=== PATIENT | female | born 1995 | race Caucasian/White ===

== ENCOUNTER 2020-07-16 13:08 | Emergency (ER) | payer OTHER, SELFPAY ==
[2020-07-16 13:20] VITALS: BP 134/88; PULSE 99; RESP 20; TEMP 37.8; O2SAT 100
--- NOTE | 2020-07-16 13:24 | ED.ABDPAIN ---
HPI - Abdominal Pain General Chief Complaint: Abdominal Pain Stated Complaint: lower abdominal pain/bloating/chills Time Seen by Provider: 07/16/20 13:55 Source: patient and RN notes reviewed Mode of arrival: ambulatory Limitations: no limitations History of Present Illness HPI narrative: 24-year-old female presents with concern for abdominal pain, bloating, low-grade temperature, chills. Reports symptoms started Thursday night, reports she had 2 episodes of vomiting on Thursday night. Reports she has an IUD, does not have a menstrual period. Reports she last felt her IUD strings approximately 2 weeks ago. Reports she had a soft bowel movement yesterday and had rectal pain with a bowel movement. Reports generalized abdominal pain, reports bilateral shoulder pain MD elicited complaint: abdominal pain Review of Systems Review of Systems: Narrative: CONSTITUTIONAL: Denies malaise, sweats. Reports chills and fever. EYES: Denies visual changes, redness, or discharge. ENT: Denies rhinorrhea, congestion, sinus pain, otalgia or sore throat. CARDIOVASCULAR: Denies chest pain, palpitations, or edema. RESPIRATORY: Denies cough or dyspnea. GASTROINTESTINAL: Reports generalized abdominal pain, nausea, vomiting, rectal pain with bowel movement. Denies diarrhea, bloody, or mucous stools. GENITOURINARY: Denies frequency, urgency, dysuria or hematuria. SKIN: Denies rash or itching. MUSCULOSKELETAL: Reports bilateral anterior shoulder pain. Denies back pain, joint pain, or myalgia. All systems reviewed & are unremarkable except as noted in HPI and below PMFSH Comments At time of signature, agree with nursing past medical, surgical, social and family history. There is no relevant family history pertinent to the presenting complaint Exam Narrative: Exam Narrative: GENERAL: Well-appearing, well-nourished, and in no acute distress. HEAD: Normocephalic, atraumatic. EYES: PERRLA, conjunctivae clear, and EOMI. ENT: Nares clear, turbinates pink, no rhinorrhea or epistaxis. Mucous membranes moist. Oropharynx without edema, erythema, or lesions. Tonsils not enlarged and without exudate. NECK: Supple. No lymphadenopathy CHEST: Speaks in full sentences. No respiratory distress. HEART: Regular rate and rhythm. ABDOMEN: Soft, mildly distended. Moderate left upper quadrant tenderness, moderate left lower quadrant tenderness, mild right lower and upper quadrant tenderness. No guarding, rebound tenderness, or rigid. No pulsatilla masses. Bowel sounds present in all four quadrants. No organomegaly. Negative Vilchis?s sign. No periumbilical tenderness. No Supra public tenderness or distension. No hernia noted. No scars or surface trauma. SKIN: Warm, dry, no rash. NEURO: Alert and oriented x3. PSYCH: Normal mood and affect Course Course Emergency Course: Patient is aware , understands and agrees to be seen in the emergency department. Patient agrees to follow-up as directed and is aware of reasons to seek care at the emergency department. Portions of this record may have been created with voice recognition software Vital Signs Vital signs: Vital Signs Temperature 100.0 F H 07/16/20 13:20 Pulse Rate 99 07/16/20 13:20 Respiratory Rate 20 07/16/20 13:20 Blood Pressure 134/88 07/16/20 13:20 Pulse Oximetry 100 07/16/20 13:20 Temperature 100.0 F H 07/16/20 13:20 Pulse Rate 99 07/16/20 13:20 Respiratory Rate 20 07/16/20 13:20 Blood Pressure 134/88 07/16/20 13:20 Pulse Oximetry 100 07/16/20 13:20 Reviewed. Transfer Transfered to: [facility] Transportation: Other (Private vehicle) Transfer rationale: Abdominal pain, low-grade temperature Transfer comments: Patient stable for transfer via private vehicle. Dr. Melissa ahn MD MDM - Abdominal Pain MDM Narrative Medical decision making narrative: Patient's history and exam warrant further evaluation emergency department. Patient agrees to proceed directly to em
== END 2020-07-16 14:15 | disposition short-term general hospital (02) ==
PROVIDERS: Emergency Provider Nurse Practitioner
DX: R10.84 Generalized abdominal pain (principal); R50.9 Fever, unspecified
CPT/HCPCS: 81003; 81025; 99203; G0463

== ENCOUNTER 2022-01-22 09:08 | Outpatient (CLI) | payer OTHER, SELFPAY ==
--- NOTE | ~2022-01-22 | XR_ITS ---
EXAMINATION: XR shoulder LT min 2V EXAM DATE: 01/22/2022 13:49 INDICATION: Ant Lt Shoulder Jt Pain X 6 Months, No Inj. TECHNIQUE: The following left shoulder projections obtained: frontal projection with internal rotatio n, frontal projection with external rotation, Grashey, and scapular Y view (4+ views). There is no p rior study for comparison. FINDINGS: No evidence of left shoulder rotator cuff calcific tendinosis. Unremarkable left glenoh umeral and acromioclavicular joints. There are no acute fractures or dislocations identified. There is no subcutaneous gas. The soft tissue is unremarkable. There are no radiopaque foreign bodies. IMPRESSION: Unremarkable XR shoulder LT min 2V exam. Reviewed, dictated and finalized at location G.
[2022-01-22 18:18] LABS: Hematocrit 41.2 % (37.0-47.0); Hemoglobin 13.6 g/dL (12.0-15.0); Mean Corpuscular Hemoglobin 28.2 pg (26-34); Mean Corpuscular Volume 85.5 fl (80-100); Mean Platelet Volume 11.3 fl (7.4-10.4); Platelet Count Result 234 k/mm3 (150-375); Red Blood Count 4.82 M/mm3 (4.2-5.4); Red Cell Distribution Width 12.6 % (11.5-14.5); White Blood Count 5.2 K/mm3 (4.5-10.0)
[2022-01-22 18:39] LABS: Alanine Aminotransferase 16 U/L (4-35); Albumin Level 4.8 g/dL (3.5-5.1); Alkaline Phosphatase 73 U/L (38-126); Anion Gap 9 mmol/L (8-16); Aspartate Amino Transferase 28 U/L (14-36); Bilirubin,Total 0.4 mg/dL (0.2-1.3); Blood Urea Nitrogen 15 mg/dL (7-17); CRP 0.5 mg/dL (<1.0); Calcium 9.3 mg/dL (8.4-10.2); Carbon Dioxide 24 mmol/L (22-30); Chloride 107 mmol/L (98-107); Cholesterol 197 mg/dL (0-200); Estimated Glomerular Filt Rate > 60; Glucose 91 mg/dL (65-110); HDL Direct 60 mg/dL; Potassium 4.2 mmol/L (3.4-5.0); Sodium 140 mmol/L (137-145); Triglycerides 74 mg/dL (<150)
[2022-01-22 18:48] LABS: LDL Cholesterol Direct 106 mg/dL
[2022-01-22 19:02] LABS: Erythrocyte Sedimentation Rate 6 mm/hr (0-20)
[2022-01-22 19:38] LABS: Vitamin D 25 Hydroxy 28.4 ng/mL
[2022-01-22 19:51] LABS: Thyroid Stimulating Hormone Reflex 0.634 uIU/mL (0.465-4.68)
[2022-01-22 20:00] LABS: Hemoglobin A1C 5.1 % (<5.7)
== END 2022-01-22 09:09 | disposition home or self-care (01) ==
LOC: ANHBWCLAB 09:10
PROVIDERS: PCP Family Medicine; Visit Provider Family Medicine
DX: R51.9 Headache, unspecified (principal); M25.512 Pain in left shoulder; R73.09 Other abnormal glucose; Z00.00 Encounter for general adult medical examination without abnormal findings
CPT/HCPCS: 36415; 73030; 80053; 80061; 82306; 83036; 84443; 85027; 85652; 86140

== ENCOUNTER 2022-09-21 09:14 | Emergency (ER) | payer OTHER, SELFPAY ==
[2022-09-21 09:26] VITALS: BP 109/66; PULSE 78; RESP 14; TEMP 36.7; O2SAT 100
--- NOTE | 2022-09-21 10:53 | ED.EYEPROB ---
HPI - Eye Problem General Chief complaint: Eye Problems Stated complaint: Eye Problem Time Seen by Provider: 09/21/22 10:40 Source: patient, RN notes reviewed and old records reviewed Mode of arrival: ambulatory Limitations: no limitations History of Present Illness HPI Narrative: 26-year-old female who presents care with complaints of redness and scratchiness to eye Thursday with some swelling to her right eye with reported matting this a.m. She reports that her eye has been watery,denies any possible foreign body to her right eye. Patient denies any acute pain to her right eye or any change in vision, no rash noted around eye with some mild swelling and redness to upper eyelid noted. MD chief complaint: eye redness and other Onset (ago): day(s) (2) Eye Symptoms: redness, discharge and other (swelling of upper eyelid) Treatments Prior to Arrival: other (warm compress) Related Data Allergies Allergy/AdvReac Type Severity Reaction Status Date / Time No Known Allergies Allergy Verified 09/21/22 10:11 Review of Systems Review of Systems: CONSTITUTIONAL: Denies fever, chills, or sweats. EYES: Denies visual changes. Reports redness,, irritation, discharge to right eye ENT: Denies rhinorrhea, congestion, sore throat, or otalgia. CARDIOVASCULAR: Denies chest pain, palpitations, or edema. RESPIRATORY: Denies cough or dyspnea. SKIN: Denies rash or itching. NEUROLOGIC: Denies headache All systems reviewed & are unremarkable except as noted in HPI and below PMFSH Past Medical History Medical History IBS (irritable bowel syndrome) Surgical History Surgical History H/O knee surgery Hx of LASIK Family History Family History Mother Hypertension Hyperlipidemia RA (rheumatoid arthritis) Father Diabetes mellitus Social History Social History Smoking status: Never smoker Alcohol intake: current Drinks per week: 1 Substance use: never Comments At time of signature, agree with nursing past medical, surgical, social and family history. There is no relevant family history pertinent to the presenting complaint Exam Narrative: GENERAL: Well-appearing, well-nourished, and in no acute distress. HEAD: Normocephalic, atraumatic. EYES: PERRLA and EOMI. lower eyelids unremarkable., some swelling to right upper eyelid with mild redness,No periorbital cellulitis noted. Sclera and conjunctivae injected right eye, matting and watery. ENT: Nares clear, no rhinorrhea or epistaxis. Mucous membranes moist. NECK: Supple.no lymphadenopathy CHEST: Clear to auscultation. No respiratory distress.SAO2 100% on room air HEART: Regular rate and rhythm. No murmur heard. Normal peripheral pulses. SKIN: Warm, dry, no rash. NEURO: No focal deficits. Alert and oriented x3. Course Course Emergency Course: Patient is aware of diagnosis, understands and agrees to treatment plan. Anticipatory guidance given. Patient agrees to follow-up as directed and is aware of reasons to seek care at the emergency department. Portions of this record may have been created with voice recognition software Level of Care: Express Care Visit Vital Signs Vital signs: Vital Signs Temperature 36.7 C 09/21/22 09:26 Pulse Rate 78 09/21/22 09:26 Respiratory Rate 14 09/21/22 09:26 Blood Pressure 109/66 09/21/22 09:26 Pulse Oximetry 100 09/21/22 09:26 Oxygen Delivery Room Air 09/21/22 09:26 Temperature 36.7 C 09/21/22 09:26 Pulse Rate 78 09/21/22 09:26 Respiratory Rate 14 09/21/22 09:26 Blood Pressure 109/66 09/21/22 09:26 Pulse Oximetry 100 09/21/22 09:26 Oxygen Delivery Room Air 09/21/22 09:26 Reviewed MDM - Eye Problem MDM Narrative Medical decision making narrative: Consideration of the followi
== END 2022-09-21 11:08 | disposition home or self-care (01) ==
PROVIDERS: Emergency Provider Registered Nurse; PCP Family Medicine
DX: H10.31 Unspecified acute conjunctivitis, right eye (principal)
CPT/HCPCS: 99213; G0463

== ENCOUNTER 2023-01-30 07:54 | Outpatient (CLI) | payer OTHER, SELFPAY ==
--- NOTE | ~2023-01-30 | XR_ITS ---
XR abdomen obstructive series DATE: 01/30/2023 09:21 INDICATION: Irritable bowel syndrome TECHNIQUE: Supine and upright AP views COMPARISON: None FINDINGS: There is a prominent amount of fecal material within the colon but no evidence of bowel obs truction. The psoas shadows are intact. No visceromegaly or significant abnormal calcification is shoshana dent. No evidence of pneumoperitoneum The lung bases appear clear. IMPRESSION: Prominent amount of fecal material within colon; no bowel obstruction or free air Reviewed, dictated and finalized at Location A. Reviewed, dictated and finalized at location B. IMPRESSION: Prominent amount of fecal material within colon; no bowel obstructi on or free air
[2023-01-30 18:42] LABS: Hematocrit 39.8 % (37.0-47.0); Hemoglobin 12.9 g/dL (12.0-15.0); Mean Corpuscular HGB Conc 32.4 g/dl (32-36); Mean Corpuscular Hemoglobin 28.9 pg (26-34); Mean Corpuscular Volume 89.2 fl (80-100); Mean Platelet Volume 10.7 fl (7.4-10.4); Platelet Count Result 235 k/mm3 (150-375); Red Blood Count 4.46 M/mm3 (4.2-5.4); Red Cell Distribution Width 12.9 % (11.5-14.5)
[2023-01-30 19:15] LABS: Iron 109 ug/dL (37-170)
[2023-01-30 19:24] LABS: Percent Iron Saturation 33 % (20-50)
[2023-01-30 19:37] LABS: Alanine Aminotransferase 19 U/L (6-35); Albumin Level 4.7 g/dL (3.5-5.1); Alkaline Phosphatase 54 U/L (38-126); Anion Gap 11 mmol/L (8-16); Aspartate Amino Transferase 23 U/L (14-36); Bilirubin,Total 0.6 mg/dL (0.2-1.3); Blood Urea Nitrogen 16 mg/dL (7-17); Calcium 9.2 mg/dL (8.4-10.2); Carbon Dioxide 23 mmol/L (22-30); Chloride 107 mmol/L (98-107); Cholesterol 185 mg/dL (0-200); Estimated Glomerular Filt Rate > 60; Glucose 87 mg/dL (65-110); HDL Direct 53 mg/dL; Potassium 4.2 mmol/L (3.4-5.0); Sodium 141 mmol/L (137-145); Triglycerides 114 mg/dL (<150)
[2023-01-30 19:48] LABS: LDL Cholesterol Direct 97 mg/dL
[2023-01-30 20:07] LABS: Thyroid Stimulating Hormone 0.919 uIU/mL (0.465-4.680)
[2023-01-30 20:28] LABS: Vitamin D 25 Hydroxy 33.4 ng/mL
== END 2023-01-30 07:55 | disposition home or self-care (01) ==
LOC: ANHBWCLAB 07:56
PROVIDERS: PCP Family Medicine; Visit Provider Family Medicine
DX: Z00.00 Encounter for general adult medical examination without abnormal findings (principal); N83.209 Unspecified ovarian cyst, unspecified side; N93.8 Other specified abnormal uterine and vaginal bleeding; K58.9 Irritable bowel syndrome, unspecified; R51.9 Headache, unspecified; Z97.5 Presence of (intrauterine) contraceptive device; R53.83 Other fatigue
CPT/HCPCS: 36415; 74019; 80053; 80061; 82306; 82728; 83540; 83550; 84443; 85027

== ENCOUNTER 2024-02-10 09:19 | Outpatient (CLI) | payer OTHER, SELFPAY ==
[2024-02-10 18:26] LABS: Hematocrit 39.3 % (37.0-47.0); Hemoglobin 12.8 g/dL (12.0-15.0); Mean Corpuscular HGB Conc 32.6 g/dl (32-36); Mean Corpuscular Hemoglobin 28.4 pg (26-34); Mean Corpuscular Volume 87.3 fl (80-100); Mean Platelet Volume 11.3 fl (7.4-10.4); Platelet Count Result 246 k/mm3 (150-375); Red Cell Distribution Width 12.6 % (11.5-14.5); White Blood Count 5.1 K/mm3 (4.5-10.0)
[2024-02-10 20:26] LABS: Alanine Aminotransferase 18 U/L (6-35); Alkaline Phosphatase 48 U/L (38-126); Anion Gap 8 mmol/L (4-12); Aspartate Amino Transferase 58 U/L (14-36); Bilirubin,Total 0.6 mg/dL (0.2-1.3); Blood Urea Nitrogen 21 mg/dL (7-17); Calcium 10.1 mg/dL (8.4-10.2); Carbon Dioxide 26 mmol/L (22-30); Chloride 106 mmol/L (98-107); Cholesterol 191 mg/dL (0-200); Estimated Glomerular Filt Rate > 60; Glucose 86 mg/dL (65-110); HDL Direct 55 mg/dL; Sodium 140 mmol/L (137-145); Triglycerides 62 mg/dL (<150)
[2024-02-10 20:38] LABS: LDL Cholesterol Direct 106 mg/dL
[2024-02-10 20:58] LABS: Thyroid Stimulating Hormone 0.546 uIU/mL (0.465-4.680)
[2024-02-10 21:35] LABS: Folic Acid 8.8 ng/mL (2.76->20)
== END 2024-02-10 09:20 | disposition home or self-care (01) ==
LOC: ANHBWCLAB 09:21
PROVIDERS: PCP Nurse Practitioner Adult Health; Visit Provider Nurse Practitioner Adult Health
DX: R79.89 Other specified abnormal findings of blood chemistry (principal); R53.83 Other fatigue; Z13.9 Encounter for screening, unspecified
CPT/HCPCS: 36415; 80053; 80061; 82306; 82607; 82746; 84443; 85027

== ENCOUNTER 2025-02-09 09:27 | Outpatient (CLI) | payer OTHER, SELFPAY ==
--- OUTSIDE RECORDS SUMMARY | 2025-02-09 09:48 | XMS_ITS | Clinical Summary ---
Author Organization [facility] Address [address] [place] [address] Care Team Providers Care Stitch Welder Name Role Phone None, Provider MD Primary Care Provider Unavaila ble Allergies No known active allergies Active Problems No known active problems Family History Medical History Relation Comments Diabetes Father Hyperlipidemia Mother Hypertension Mother Relation Status Comments Father Mother Social History Tobacco Use Types Packs/Day Years Used Date Smoking Tobacco: Never Smokeless Tobacco: Never Tobacco Cessation:Counseling Given: No Alcohol Use Standard Drinks/Week Comments Yes 0 (1 standard drink = 0.6 oz pur e alcohol) once monthly PHQ-2 Answer Date Recorded PHQ-2 Score - If the patient scores above 3, please move on to questions 3-9 0 02/07/2022 Comments Unknown Sex and Gender Information Value Date Recorded Sex Assigned at Not on file Legal Sex Female 2:02 PM CDT Gender Identity Not on file Sexual Orientation Not on file Last Filed Vital Signs Vital Sign Reading Time Taken Comments Blood Pressure 110/72 02/07/2022 8:55 AM CDT Pulse - - Temperature - - Respiratory Rate - - Oxygen Saturation - - Inhaled Oxygen Concentration - - Weight 79.8 kg (176 lb) 02/07/2022 8:55 AM CDT Height 162.6 cm (5' 4 ) 02/07/2022 8:55 AM CDT Body Mass Index 30.21 02/07/2022 8:55 AM CDT Plan of Treatment Health Maintenance Due Date Last Done Comments Cervical Cancer Screening Pap Smear (Age 30 to 64) Every 3 Years 1993 Annual Physical 1996 Hepatitis C 2011 Hepatitis B Vaccines (1 of 3 - 19+ 3-dose series) 2012 Cervical Cancer Screening Pap with HPV Testing (Age 30 to 64) Every 5 Years 2023 Cervical Cancer Screening with HPV 2023 COVID-19 Vaccine (2023- season) 2024 07/12/2021, 06/19/2021 DTaP, Tdap and Td Vaccines (5 - Td or Tdap) 04/08/2031 04/08/2021, 02/01/2019, 12/18/2016, Additional history exists HPV Vaccines Completed 01/31/2016, 09/03, 05/30/2010 Meningococcal B Vaccine Aged Out No l onger eligible based on patient's age to complete this topic Meningococcal Vaccine Aged Out No capri yudy eligible based on patient's age to complete this topic Pneumococcal Vaccine: Pediatrics (0 to 5 Years) and At-Risk Patients (6 to 64 Years) Aged Out No longer eligible based on patient's age to complete this topic RSV Immunizations Under 20 Months Aged Out No longer eligible based on patient's age to complete this topic Insurance [employer] Care Teams Stitch Welder Relationship Specialty Start Date End Date None, Provider, PCP - General 02/07/22
--- OUTSIDE RECORDS SUMMARY | 2025-02-09 09:48 | XMS_ITS | Referral Summary ---
Author Organization [facility] Address [address] [place] [address] Care Team Providers Care Shop Teacher Name Role Phone Adelaide Sams DO Unavailable [phone] Taj Steward MD Primary Care Provider [phone] Allergies Active Allergy Reactions Criticality Noted Date Comments Prochlorperazine Mental status changes Medium 2020 Severe anxiety with IIV ADMINISTRATION Medications escitalopram (LEXAPRO) 20 mg tablet TAKE 1 TABLET(20 MG) BY MOUTH DAILY 30 tablet 8 01/10/2025 Active Active Problems Problem Noted Date Diagnosed Date Vitamin D deficiency 08/13/2021 Overview (09/02/2023): Last Assessment & Plan: Recheck level today Discussed weekly supplementation if low given Unilateral hearing loss, left 07/15/2021 Assessment & Plan (07/16/2021 12:48 PM CDT): Obtained Hearing test, left sided Hearing loss due to Conductive Hearing loss, will proceed with CT temporal bones Iron deficiency anemia secon matthew to inadequate dietary iron intake 05/22/2021 Overview (09/02/2023): Last Assessment & Plan: Plan CBC and Ferritin today, Venofer infusions 3rd tri Hyperemesis gravidarum with electrolyte imbalanc e 11/19/2020 Overview (09/02/2023): Hypokalemia, significant weight loss Irritable bowel syndrome 09/20/2015 Overview (02/05/2017): IBS - Irritable bowel syndrome Headache 08/14/2014 Overview (02/05/2017): Headache Immunizations Immunization Administration Dates Next Due HPV, Quadrivalent 01/31/2016,09/25/2015,05/30/20 10 Influenza, Quadrivalent, Spl it, Intramuscular 08/02/2016 Influenza, Quadrivalent, Spl it, Preservative Free, Intramuscular 08/01/2021 Influenza, Unspecified 08/01/2021,08/04/2020,11/2017 MMR 04/23/2019 Tdap 04/08/2021, 9,12/18/2016,06/21 Social History Tobacco Use Types Packs/Day Years Used Date Smoking Tobacco: Never Smokeless Tobacco: Never Tobacco Cessation:Counseling Given: Not Answered Alcohol Use Standard Drinks/Week Comments No 0 (1 standard drink = 0.6 oz pur e alcohol) Comments No Sex and Gender Information Value Date Recorded Sex Assigned at Not on file Legal Sex Female 11:12 AM 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 Gender Identity Not on file Sexual Orientation Not on file Occupation Industry Job Start Date Job End Date Not on file Not on file Not on file Not on file Last Filed Vital Signs Vital Sign Reading Time Taken Comments Blood Pressure 132/72 09/12/2024 9:39 AM 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 Pulse 80 07/15/2021 10:38 AM CDT Temperature 36.6 C (97.8 F) 07/15/2021 10:38 AM CDT Respiratory Rate 16 11/15/2020 4:22 PM 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 Oxygen Saturation 98% 11/15/2020 4:22 PM 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 Inhaled Oxygen Concentration - - Weight 81.7 kg (180 lb 3.2 oz) 09/12/2024 9:39 A M 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 Height 162.6 cm (5' 4 ) 09/12/2024 9:39 AM 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 Body Mass Index 30.93 09/12/2024 9:39 AM 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 Plan of Treatment Not on file Insurance [employer] SIG [id number] [employer]ENS[employer] GENERIC [id number] [place] [address] Advance Directives For more information, please contact: [phone] * Full Code (Latest Code Status on File) Date Activated Date Inactivated Comments 09/17/2018 9:20 PM 09/19/2018 6:43 PM Care Teams Shop Teacher Relationship Specialty Start Date End Date Taj Steward MD [address] [facility] [address] [place] [address] PCP - General Family Practice 05/25/23 Adelaide Sams DO [address] [place] [address] [address] [place] [address] Referring Physician Otolaryngology 11/07/21
--- OUTSIDE RECORDS SUMMARY | 2025-02-09 09:48 | XMS_ITS | Clinical Summary ---
Author Organization [facility] Address [address] [place] [address] Phone Care Team Providers Care Ux Visual Designer Name Role Phone Provider, None Primary Care Provider Unavailabl e Allergies No known active allergies Medications naproxen (NAPROSYN) 500 MG Tablet Take 1 Tab by mouth 2 times daily as needed for Mild or more severe pain. 20 Tab 04/21/2018 Active Social History Tobacco Use Types Packs/Day Years Used Date Smoking Tobacco: Never Smokeless Tobacco: Never Alcohol Use Standard Drinks/Week Comments No 0 (1 standard drink = 0.6 oz pur e alcohol) Comments Unknown Sex and Gender Information Value Date Recorded Sex Assigned at Not on file Legal Sex Female 10:38 AM CDT Gender Identity Not on file Sexual Orientation Not on file Last Filed Vital Signs Vital Sign Reading Time Taken Comments Blood Pressure 112/70 04/21/2018 12:23 PM CDT Pulse 72 04/21/2018 12:23 PM CDT Temperature 37.1 C (98.8 F) 04/21/2018 10:51 AM CDT Respiratory Rate 18 04/21/2018 12:23 PM CDT Oxygen Saturation 99% 04/21/2018 12:23 PM CDT Inhaled Oxygen Concentration - - Weight 70.3 kg (155 lb) 04/21/2018 10:51 AM CDT Height 162.6 cm (5' 4 ) 04/21/2018 10:51 AM CDT Body Mass Index 26.61 04/21/2018 10:51 AM CDT Plan of Treatment Health Maintenance Due Date Last Done Comments Hepatitis C Virus (HCV) Screening 1993 TdaP Immunization 1993 Hepatitis B Immunization (1 of 3 - 19+ 3-dose series) 2012 Influenza Immunization (#1) 2024 08/02/2016 SARS-COV-2 Immunization (2023- season) 2024 07/12/2021, 06/19/2021 Respiratory Syncytial Virus (RSV) Immunization (Adult) (1 - 1-dose 75+ series) 2068 Meningococcal Immunization (ACWY) Aged Out No longer eligible b ased on patient's age to complete this topic Pneumococcal Immunization Combined Aged Out No longer eligible b ased on patient's age to complete this topic Rotavirus Immunization Aged Out No lo nger eligible based on patient's age to complete this topic Insurance [employer] [place] [address] [place] [address] Care Teams Ux Visual Designer Relationship Specialty Start Date End Date Provider, None [place] PCP - General 04/21/18
--- OUTSIDE RECORDS SUMMARY | 2025-02-09 09:48 | XMS_ITS | Encounter Summary ---
Author Organization [facility] Address [address] [place] [address] Care Team Providers Care Guest Relations Executive Name Role Phone Cuong Desai DO Primary Care Provider [phone] Cesar Gu DO Unavailable [phone] Stephanie Hernandes MD Unavailable [phone] Encounter Details Date Type Department Care Team (Late st Contact Info) Description 02/09/2016 Lab Requisition [facility] [address] [place] [address] Unknown, Provider Social History Tobacco Use Types Packs/Day Years Used Date Smoking Tobacco: Never Assessed Sex and Gender Information Value Date Recorded Sex Assigned at Not on file Gender Identity Not on file Sexual Orientation Not on file documented as of this encounter Plan of Treatment Not on file documented as of this encounter Procedures Procedure Name Priority Date/Time Associated Diagnosis Comments VARICELLA ZOSTER ANTIBODY IGG Routine 02/09/2016 8:25 AM CDT HEPATITIS B SURFACE ANTIBODY Routine 02/09/2016 8:25 AM CDT documented in this encounter Results * VARICELLA ZOSTER ANTIBODY IGG (02/09/2016 8:25 AM CDT) Varicella zoster Virus Antibody IgG 1566 Immune >165 index 02/11/2016 2:14 PM CDT [facility] ([facility]) Comment: Negative <135 Equivocal 135 - 165 Positive >165 A positive result generally indicates exposure to the pathogen or administration of specific immunoglobulins, but it is not indication of active infection or stage of disease. Blood specimen (specimen) BLOOD SPECIMEN / Unknown Venipuncture / Unknown 02/09/2016 8:25 AM CDT 02/09/2016 2:37 PM CDT Narrative [facility] ([facility]) - 02/11/2016 2:14 PM CDT Performed at: [address] [place] [id number] Travel Med Surg Rn: Kye Kidd PhD, Phone: [phone] Provider Unknown LAB - CHEMISTRY ORDE MIRYAMRAI [facility] ([facility]) * (ABNORMAL) HEPATITIS B SURFACE ANTIBODY (02/09/2016 8:25 AM CDT) [facility]Bs[facility] REACTIVE(A ) Non Reactive 02/09/2016 8:23 PM CDT [facility] Blood BLOOD SPECIMEN / Unknown Venipuncture / Unknown 02/09/2016 8:25 AM CDT 02/09/2016 2:37 PM CDT Provider Unknown LAB - CHEMISTRY ORDMele PAIGE Performing Organization Address City/[facility]/ZIP Co de Phone Number [facility] [address] [place] [address] documented in this encounter Visit Diagnoses Not on filedocumented in this encounter Care Teams Guest Relations Executive Relationship Specialty Start Date End Date Cuong Desai DO [address] [facility] [address] [place] [address] PCP - General 08/08/20 Cesar Gu DO [address] [place] [address] PCP - Attributed-Exclusive Choice 06/02/17 06/22/17 Stephanie Hernandes MD [address] [address] PCP - Attributed-Exclusive Choice 08/23/17 04/02/19 documented as of this encounter
--- OUTSIDE RECORDS SUMMARY | 2025-02-09 09:48 | XMS_ITS | Clinical Summary ---
Author Organization [facility] [employer] Address [address] [place] [address] Care Team Providers Care Liner Inserter Name Role Phone Cuong Desai DO Primary Care Provider [phone] [facility],non-owned Affiliates and Associated Physician Practices is amultiple site organization consisting of ambulatory clinics and hospital sitesin [place], [place], [place] and [place]. This disclosure is being madepursuant to the Care Everywhere program and may not contain all information available regarding this patient. Last updated 18.[facility] [employer] Allergies Active Allergy Reactions Criticality Noted Date Comments Prochlorperazine Psychiatric Medium 2020 Severe anxiety with IIV ADMINISTRATION Medications * Be aware that medications may not be up to date on this document. Alwaysverify current medications with the patient. Medication Sig Dispensed Refills Start Date End Date Status Multiple Vitamins-Minerals (MULTIPLE VITAMINS/WOMENS PO) Take by mouth once daily Active Probiotic Product (PROBIOTIC DAILY PO) Take by mouth once daily Active vitamin D, ergocalciferol, (DRISDOL) 1.25 MG (33810 UT) capsule Take 1 (one) capsule by mouth every 7 days 12 capsule 08/13/2021 Active MAGNESIUM PO Active pantoprazole EC (PROTONIX) 40 MG tabletIndications:Dy spepsia Take 1 (one) tablet by mouth once daily 30 tablet 09/09/2021 Active Active Problems Patient Care Coordination No te Formatting of this note migh t be different from the original. with history of severe HG. Last was out of work due to HG, required PICC line. 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 Hospitalized at 9 weeks for IVF and antiemetics. To follow with MFM until HG resolved. May send back to midwives if okay per MFM. Problem Noted Date Diagnosed Date Vitamin D deficiency 08/13/2021 Assessment & Plan (08/13/2021 9:47 AM CDT): Recheck level today Discussed weekly supplementation if low given exam 08/12/2021 Assessment & Plan (08/12/2021 1:51 PM CDT): ! Neg PPD/A screen MOC: vasectomy Pap NILM, due after September of this year S/P COVID vaccination S/S PMAD discussed RTO in 1 year for WWE Iron deficiency anemia secon matthew to inadequate dietary iron intake 05/22/2021 Assessment & Plan (08/12/2021 1:50 PM CDT): Plan CBC and Ferritin today, Venofer infusions 3rd tri Hyperemesis gravidarum with electrolyte imbalanc e 11/19/2020 Overview (12/13/2020): Hypokalemia, significant weight loss Irritable bowel syndrome 09/20/2015 Overview (05/07/2021): IBS - Irritable bowel syndrome Assessment & Plan (08/12/2021 1:50 PM CDT): Severe HG in with malabsorption, plan visit with GI to establish care. Resolved Problems Problem Noted Date Diagnosed Date Resolved Date Encounter for planned induction of labor 06/30/2021 08/12/2021 Iron deficiency anemia secon matthew to inadequate dietary iron intake 05/27/2021 Anxiety during 12/13/202009/2021 Overview (05/22/2021): Thought to be related to chronic hyperemesis Ferritin 4 05/22/21 Plan to arrange Venofer at 36 weeks Screening for cervical cancer 06/06/2019 08/12/2021 Overview (06/06/2019): 11/19 normal pap Abnormal glucose in , antepartum 02/07/2019 06/06/2019 Overview (02/07/2019): Needs GTT Hyperemesis gravidarum 10/28/201806/06 Overview (10/28/2018): IV therapy at home every other day Home health seeing pt Has IV in place Nausea and vomiting during 09/10/2018 12/21/2018 Supervision of normal pregna ncy in first trimester 09/10/2018 06/06/2019 Overview (09/10/2018): IOB 09/10/18 Dating L=7w4d US Hyperemesis, sent to [facility] for IV fluids now, has been to ED twice this week. Hypokalemia due to loss of potassium 09/10/2018 06/06/2019 (normal spontaneous vaginal delivery) 07/24/2017 12/21/2018 Supervision of normal 03/19/2017 09/10/2018 Overview (03/19/2017): Dating: LMP 06/02/16 c/w 9 4/7 wk US PNL: A+/I/-/-, HIV NR antibody screen neg Chl/karly neg/neg Urine cx: neg GCT: 104 Genetic screening or testing: SS low risk GBS: negative Irritable bowel syndrome 09/20/201509/2021 Overview (06/06/2019): Overview: IBS - Irritable bowel syndrome Uterine size date discrepanc y , third trimester 08/12/2021 Immunizations Name Administration Dates Next Due FLU VACCINE QUAD IIV4 SPLIT 0.25 ML IM 08/02/2016 Human Papilloma Virus Earnest valent Vaccine 01/31/2016,09/25/2015,05/30/2010 INFLUENZA VACCINE 08/01/2021,08/04/2020,08/02/20 18 INFLUENZA VACCINE, QUADR. (A FLURIA, FLUZONE QUADRIVALENT; 6MO+) (IIV4) 08/02/2016 MMR 04/23/2019 TDAP (7yrs+) 04/08/2021, 9,12/18/2016,2007 Family History Medical History Relation Name Comments Diabetes - Type 2 Father Arthritis - Rheumatoid Mother Hypertension Mother Relation Name Status Comments Father Mother Social History Tobacco Use Types Packs/Day Years Used Date Smoking Tobacco: Never Smokeless Tobacco: Never Tobacco Cessation:Counseling Given: No Alcohol Use Standard Drinks/Week Comments Yes 0 (1 standard drink = 0.6 oz pur e alcohol) occasional PHQ-2 Answer Date Recorded PHQ2 TOTAL SCORE 0 06/06/2021 Sex and Gender Information Value Date Recorded Sex Assigned at Not on file Gender Identity Not on file Sexual Orientation Not on file Last Filed Vital Signs Vital Sign Reading Time Taken Comments Blood Pressure 120/72 09/09/2021 9:25 AM CYBER SYSTEMS ENGINEER Pulse 69 09/09/2021 9:25 AM CYBER SYSTEMS ENGINEER Temperature 36.4 C (97.5 F) 09/09/2021 9:25 AM CYBER SYSTEMS ENGINEER Respiratory Rate 14 09/09/2021 9:25 AM CYBER SYSTEMS ENGINEER Oxygen Saturation 100% 09/09/2021 9:25 AM CYBER SYSTEMS ENGINEER Inhaled Oxygen Concentration - - Weight 78 kg (172 lb) 09/09/2021 9:25 AM CYBER SYSTEMS ENGINEER Height 162.6 cm (5' 4 ) 09/09/2021 9:25 AM CYBER SYSTEMS ENGINEER Body Mass Index 29.52 09/09/2021 9:25 AM CYBER SYSTEMS ENGINEER Plan of Treatment Health Maintenance Due Date Last Done Comments HEPATITIS B VACCINE (1 of 3 - 19+ 3-dose series) 2012 COVID-19 VACCINE ( - season) 2024 06/19/2021 DEPRESSION SCREENING 11/02/2024 INFLUENZA VACCINE (Season Ended) 2025 08/01/2021, 08/04/2020, 08/02/2018, Additional history exists PAP SMEAR 09/02/2025 09/02/2022, 09/10/2018 DTAP/TDAP/TD VACCINES (5 - Td or Tdap) 04/08/2031 04/08/2021, 02/01/2019, 12/18/2016, Additional history exists ZOSTER VACCINE (1 of 2) 2043 HPV VACCINE Completed 01/31/2016, 09/03, 05/30/2010 HEPATITIS C SCREENING Completed 08/11/2016 HIV SCREENING Completed 04/08/2021, 04/2021, 09/30/2018, Additional history exists HIB VACCINE Aged Out No longer eligi ble based on patient's age to complete this topic MENINGOCOCCAL (Group B) VACCINE SHARED DECISION-MAKING Aged Out No longer eligible based on patient's age to complete this topic MENINGOCOCCAL GROUPS A/C/Y/W VACCINE Aged Out No longer eligible based on patient's age to complete this topic PNEUMOCOCCAL VACCINE Aged Out No long er eligible based on patient's age to complete this topic Goals Goal Patient Goal Type Associated Problems Recent Progress Patient-Stated? Author Medication Management General On track( 021 9:27 AM CYBER SYSTEMS ENGINEER) No Arina Iqbal RN Note: Expected end date: ongoing Interventions: Take all medications as prescribed Let your doctor know right away about any changes in your medications Make sure to request a refill of your medication at least one week prior to your last dose Procedures Procedure Name Priority Date/Time Associated Diagnosis Comments PAP IMAGE-GUIDED RFLX HPV Routine 09/02/2022 1:08 PM CDT Well woman exam with routine gynecological exam HIV-1 HIV-2 ANTIBODY + HIV P24 AG PANEL Routine 04/08/2021 Encounter for supervision of other normal in third trimester HEPATITIS C AB W/RFLX TO HCV RNA QN PCR Routine 08/11/2016 3:20 PM CDT from Last 3 Months or Most Recently Relevant to Health Maintenance Results * PAP IMAGE-GUIDED RFLX HPV (09/02/2022 1:08 PM CDT) Case Report Gynecologic Cytology Report Case: [id number] Authorizing Provider: Marsha Forbes MD Collected: 09/02/2022 01:08 PM Ordering Location: [facility] Received: 09/03/2022 02:52 PM [facility] First Screen: Donta Foreman Specimen: THINPREP - IMAGE GUIDED, Cervix/Endocervix 09/05/2022 12:59 PM CDT [facility] LMP 08/2309/05/2022 12:59 PM CDT [facility] Menstrual Status None Applicable 01/2022 12:59 PM CDT [facility] Specimen Adequacy Satisfactory for evaluation, endocervical/trans formation zone component absent. 09/05/2022 12:59 PM CDT [facility] Categorization Negative for intraepithelial lesion or malignancy. 09/05/2022 12:59 PM CDT [facility] Interpretation MAIL HANDLER ASSISTANT Negative for intraepithelial lesion or malignancy. 09/05/2022 12:59 PM CDT [facility] Pap Footnote The Pap Smear is a screening test. False positive and false negative results occur. Negative results do not preclude abnormalities, thus clinical correlation is required. This specimen was evaluated by the ThinPrep Imaging System along with an additional manual rescreening by a wholesale loan processor and/or pathologist. 09/05/2022 12:59 PM CDT [facility] Pathology/Cytolo gy MISCELLANEOUS SAMPLES / Unknown 09/02/2022 1:08 PM CDT 09/03/2022 2:52 PM CDT Marsha Forbes MD LAB - PATHOLOGY/CYTO LOGY ORDERABLES Performing Organization Address City/State/[facility] Co de Phone Number [facility] [address] [phone] * HIV-1 HIV-2 ANTIBODY + HIV P24 AG PANEL (04/08/2021) HIV Screen 4th Generation w Reflex NON-REACT SAUD NON-REACT SAUD [facility] Comment: HIV-1 antigen and HIV-1/HIV-2 antibodies were not detected. There is no laboratory evidence of HIV infection. PLEASE NOTE: This information has been disclosed to you from records whose confidentiality may be protected by state law. If your state requires such protection, then the state law prohibits you from making any further disclosure of the information without the specific written consent of the person to whom it pertains, or as otherwise permitted by law. A general authorization for the release of medical or other information is NOT sufficient for this purpose. For additional information please refer to http://education.Mesitis/faq/KEP819 (This link is being provided for informational/ educational purposes only.) The performance of this assay has not been clinically validated in patients less than 2 years old. Test Performed at: [place] [address] JEREMY NAIDU DO,MPH Blood BLOOD SPECIMEN / Unknown 04/08/2021 04/08/2021 10:52 AM CDT Ly Frank APRN-[facility] LAB - CHEMISTRY OR DERABLES Performing Organization Address City/[facility]/ZIP Co de Phone Number [facility] [address] [place] [address] * HEPATITIS C AB W/RFLX TO HCV RNA QN PCR (08/11/2016 3:20 PM CDT) Hepatitis C Antibody NON-REACTI VE NON-REACT SAUD [facility] ([facility]) Signal/Cutoff 0.01 <1.00 [facility] ([facility]) Comment: Test Performed at: [facility] [place] [address] JEREMY NAIDU DO,MPH 08/11/2016 3:20 PM CDT 08/11/2016 3:21 PM CDT Ly Frank APRN-[facility] LAB - CHEMISTRY OR DERABLES [facility] ([facility]) from Last 3 Months or Most Recently Relevant to Health Maintenance Advance Directives * Full Code (Latest Code Status on File) Date Activated Date Inactivated Comments 06/30/2021 6:09 AM 07/01/2021 7:41 PM * Full Code Date Activated Date Inactivated Comments 12/11/2020 11:52 AM 12/13/2020 4:01 PM * Full Code Date Activated Date Inactivated Comments 11/19/2020 1:34 PM 11/22/2020 2:39 PM * Full Code Date Activated Date Inactivated Comments 04/21/2019 8:07 PM 04/23/2019 2:26 PM * Full Code Date Activated Date Inactivated Comments 03/19/2017 9:00 PM 03/22/2017 2:42 PM Care Teams Liner Inserter Relationship Specialty Start Date End Date Cuong Desai DO [address] [address] PCP - General 08/08/20
--- OUTSIDE RECORDS SUMMARY | 2025-02-09 09:48 | XMS_ITS | Encounter Summary ---
Author Organization [facility] Address [address] [address] Care Team Providers Care Project Manager Name Role Phone ReidCuong yeboah Primary Care Provider [phone] Reason for Visit * Reason Onset Date Comments MEDICATION REFILL 04/15/2021 Encounter Details Date Type Department Care Team (Late st Contact Info) Description 04/15/2021 Refill [facility] Gynecology and Women's [facility] [address] [place] [id number] Ly [facility] [address] [place] [address] [id number] MEDICATION REFILL Social History Tobacco Use Types Packs/Day Years Used Date Smoking Tobacco: Never Smokeless Tobacco: Never Alcohol Use Standard Drinks/Week Comments No 0 (1 standard drink = 0.6 oz pur e alcohol) not during Comments Yes Sex and Gender Information Value Date Recorded Sex Assigned at Not on file Gender Identity Not on file Sexual Orientation Not on file documented as of this encounter Functional Status Functional Status Response Date of Assess ment Is person deaf or have serious hearing difficult y? No 12/11/2020 Is person blind or have serious difficulty seein g? No 12/11/2020 Does person have serious dif ficulty walking/climbing stairs? No 12/11/2020 Does person have difficulty dressing/bathing? No 12/11/2020 Does person have difficulty doing errands alone? No 12/11/2020 Cognitive Status Response Date of Assessm ent Does person have difficulty concentrating/remembering/making decisions? No 12/11/2020 documented as of this encounter Plan of Treatment Not on file documented as of this encounter Visit Diagnoses Not on filedocumented in this encounter Care Teams Project Manager Relationship Specialty Start Date End Date Cuong Desai DO [address] [address] PCP - General 08/08/20 documented as of this encounter
--- OUTSIDE RECORDS SUMMARY | 2025-02-09 09:48 | XMS_ITS | Clinical Summary ---
Author Organization [facility] Address [address] [place] [address] Care Team Providers Care Silverware Assembler Name Role Phone Adelaide Sams DO Unavailable [phone] Taj Steward MD Primary Care Provider [phone] Allergies Active Allergy Reactions Criticality Noted Date [...] Unspecified 08/01/2021,08/04/2020,11/2017 MMR 04/23/2019 Tdap 04/08/2021, 9,12/18/2016,06/21 Surgical History Surgery Date Site/Laterality Comments OTHER SURGICAL HISTORY Torn patellar tendon, meniscus: Knee surgery KNEE ARTHROSCOPY Medical History Medical History Date Comments Hx Other Medical Torn patellar t endon, meniscus; Comments: RED 08/14/2014 - IBS (irritable bowel syndrome) Family History Medical History Relation Name Comments Diabetes Father Diabetes mellit us; Hypertension Mother Hypertension; Other Other No family histo ry of breast cancer; Relation Name Status Comments Father Mother Other Social History Tobacco Use Types Packs/Day Years Used Date Smoking Tobacco: Never Smokeless Tobacco: Never Tobacco Cessation:Counseling Given: Not Answered Alcohol Use Standard Drinks/Week Comments No 0 (1 standard drink = 0.6 oz pur e alcohol) Comments No Sex and Gender Information Value Date Recorded Sex Assigned at Not on file Legal Sex Female 11:12 AM BURLAPPER Gender Identity Not on file Sexual Orientation Not on file Occupation Industry Job Start Date Job End Date Not on file Not on file Not on file Not on file Obstetrics History Para Term AB IAB SAB Ectopic Multiple Livin g Live Births 3 3 3 3 3 Date Outcome GA Total Labor Labor/2nd/3rd Weight Sex Type Anes PTL Mary A1 A5 Name Clin 2016 Term 40w 0d 0h 06m 0h 06m 3.629 kg (8 lb) F Vagina l Epidur al Livin g 8 9 EVEAN S,BAB Y GIRL LYNDA Frank SOLAR ENERGY SYSTEM INSTALLER HELPER- CNM Complications:None Delivery Location:[facility] 2018 Term 39w 4d 0h 08m 0h 08m 3.345 kg (7 lb 6 oz) F Vagina l Epidur al N Livin g 9 9 DENNIS, BABY GIRL LYNDA Maure en J Foste r SOLAR ENERGY SYSTEM INSTALLER HELPER- CNM Complications:None Delivery Location:[facility] 2020 Term 40w 0d 0h 16m 0h 09m/0h 07m 3.6 kg (7 lb 15 oz) M Vagina l Epidur al N Livin g 7 9 DENNIS, BABY BOY LYNDA Frank SOLAR ENERGY SYSTEM INSTALLER HELPER- CNM Complications:None Delivery Location:[facility] ([facility]) Last Filed Vital Signs Vital Sign Reading Time Taken Comments Blood Pressure 132/72 09/12/2024 9:39 AM BURLAPPER Pulse 80 07/15/2021 10:38 AM CDT Temperature 36.6 C (97.8 F) 07/15/2021 10:38 AM CDT Respiratory Rate 16 11/15/2020 4:22 PM BURLAPPER Oxygen Saturation 98% 11/15/2020 4:22 PM BURLAPPER Inhaled Oxygen Concentration - - Weight 81.7 kg (180 lb 3.2 oz) 09/12/2024 9:39 A M BURLAPPER Height 162.6 cm (5' 4 ) 09/12/2024 9:39 AM BURLAPPER Body Mass Index 30.93 09/12/2024 9:39 AM BURLAPPER Plan of Treatment Health Maintenance Due Date Last Done Comments Cervical Cancer Screening 1993 Depression Screening 1993 Hepatitis C Screening 1993 Varicella Vaccines (1 of 2 - 13+ 2-dose series) 2006 Hepatitis B Screening 2011 Covid-19 Vaccine ( season) 2024 07/12/2021, 06/19/2021 Influenza Vaccine (Season Ended) 2025 08/01/2021, 08/01/2021, 08/04/2020, Additional history exists Regular Well Visit/Exam 18-64 09/12/2025 09/12/2024, 09/09/2023 DTaP/Tdap/Td Vaccine (5 - Td or Tdap) 04/08/2031 04/08/2021, 02/01/2019, 12/18/2016, Additional history exists HPV Vaccines Completed 01/31/2016, 09/03, 05/30/2010 Pneumococcal vaccine <65 Aged Out No longer eligible based on patient's age to complete this topic Insurance [employer] [id number] [place] [address] [employer] COMPENSATION GENERIC Mailstop [phone] [place] [address] Advance Directives For more information, please contact: [phone] * Full Code (Latest Code Status on File) Date Activated Date Inactivated Comments 09/17/2018 9:20 PM 09/19/2018 6:43 PM Care Teams Silverware Assembler Relationship Specialty Start Date End Date Taj Steward MD [address] [place] [id number] PCP - General Family Practice 05/25/23 Adelaide Sams DO [address] [place] Hoang [address] [address] Referring Physician Otolaryngology 11/07/21
[2025-02-09 18:56] LABS: Alanine Aminotransferase 23 U/L (6-35); Albumin Level 4.8 g/dL (3.5-5.1); Alkaline Phosphatase 54 U/L (38-126); Anion Gap 9 mmol/L (4-12); Aspartate Amino Transferase 79 U/L (14-36); Bilirubin,Total 0.5 mg/dL (0.2-1.3); Blood Urea Nitrogen 17 mg/dL (7-17); Calcium 9.1 mg/dL (8.4-10.2); Carbon Dioxide 26 mmol/L (22-30); Chloride 103 mmol/L (98-107); Cholesterol 175 mg/dL (0-200); Estimated Glomerular Filt Rate > 60; Glucose 71 mg/dL (65-110); HDL Direct 44 mg/dL; Potassium 4.1 mmol/L (3.4-5.0); Sodium 138 mmol/L (137-145); Triglycerides 67 mg/dL (<150)
[2025-02-09 19:00] LABS: Hematocrit 39.2 % (37.0-47.0); Hemoglobin 12.5 g/dL (12.0-15.0); Mean Corpuscular HGB Conc 31.9 g/dl (32-36); Mean Corpuscular Hemoglobin 28.2 pg (26-34); Mean Corpuscular Volume 88.5 fl (80-100); Mean Platelet Volume 11.1 fl (7.4-10.4); Platelet Count Result 232 k/mm3 (150-375); Red Blood Count 4.43 M/mm3 (4.2-5.4); Red Cell Distribution Width 12.8 % (11.5-14.5)
[2025-02-09 19:06] LABS: LDL Cholesterol Direct 100 mg/dL
[2025-02-09 19:26] LABS: Thyroid Stimulating Hormone 0.565 uIU/mL (0.465-4.680)
[2025-02-09 20:04] LABS: Free T4 Free Thyroxine 1.15 ng/dL (0.78-2.19); Vitamin D 25 Hydroxy 31.9 ng/mL
== END 2025-02-09 09:28 | disposition home or self-care (01) ==
LOC: ANHBWCLAB 09:29
PROVIDERS: PCP Nurse Practitioner Adult Health; Visit Provider Nurse Practitioner Adult Health
DX: Z13.9 Encounter for screening, unspecified (principal); R79.89 Other specified abnormal findings of blood chemistry
CPT/HCPCS: 36415; 80053; 80061; 82306; 84439; 84443; 85027